=== PATIENT | female | born 1960 | race Caucasian/White ===

== ENCOUNTER 2018-10-16 15:01 | Inpatient (IN) | payer MEDICARE ==
[~2018-10-16] VITALS: Ht 160 cm; Wt 64.4 kg
[~2018-10-16 15:01] MED LIST: BACTRIM DS TAB1 EACH PO; BENADRYL25 MG; BENADRYL25 MG PO; CARAFATE 1 GM TA1 G1 PO; CONSTULOSE10 GM/15 M PO; CORGARD40 M1 PO; CYCLOBENZAPRINE5 MG PO; DIPHENHYDRAMINE25 M3 PO; DOXYCYCLINE 10100 MG PO; FLEXERIL PO; FOLIC ACID1 MG PO; GOLYTELY4000 M1 PO; GUAIATUSSIN AC118 ML PO; IRON325 PO; LASIX 40 MG TAB40 M1 PO; LEVAQUIN 500 M500 M1 PO; MIRALAX255 GM PO; NADOLOL 20 MG T20 M1 PO; NORCO 5-325 TA1 EACH PO; OMEPRAZOLE40 MG PO; OXYCODONE HCL 55 MG PO; OXYCONTIN10 M1 PO; PEPCID40 MG PO; PERCOCET 5-3251 EACH PO; PHENERGAN 25 MG25 M1 PO; PREDNISONE 20 M20 MG PO; PREPARATION H O28 GM; PREPARATION H1 EAC5 RC; PROTONIX40 M2 PO; PROZAC20 MG PO; PYRIDIUM100 M1 PO; SPIRONOLACTONE100 M1; TRAZODONE 150150 M1 PO; TRAZODONE HCL100 MG PO; VEETIDS 250MG250 M1 PO; VENTOLIN HFA 1818 GM INH; ZANAFLEX4 MG PO; ZANTAC 150MG T150 M1 PO; ZPAK PO; [UNRECOGNIZED DRUG - REMARK]
[2018-10-16 15:11] VITALS: BP 107/61
[2018-10-16] MEDS ORDERED: SPIRONOLACTONE25 M1 PO (15:22)
[2018-10-16] MEDS ORDERED: CARVEDILOL3.125 MG PO (15:23)
[2018-10-16 15:52] LABS: HEMOGLOBIN 11.5 gm/dL (12.0-15.0); MCH 32.3 pg (26.0-34.0)
[2018-10-16 15:56] LABS: HEMATOCRIT 33.8 % (37.0-47.0); MCV 95.2 fL (80.0-100.0); MPV 9.7 fl. (7.2-11.1); NUCLEATED RBCS 0 /100WBC; RBC 3.55 mil/uL (4.20-5.00); RDW-CV 15.1 % (10.5-14.5)
[2018-10-16 15:57] LABS: URINE BLOOD TRACE (Negative); URINE CLARITY CLEAR; URINE COLOR YELLOW; URINE GLUCOSE-RANDOM NEGATIVE (Negative); URINE KETONES TRACE (Negative); URINE LEUKOCYTES-REFLEX NEGATIVE (Negative); URINE PROTEIN NEGATIVE (Negative); URINE SPECIFIC GRAVITY 1.025 (1.005-1.030)
[2018-10-16 15:58] LABS: WBC 1.2 thou/uL (4.0-11.0)
[2018-10-16 15:59] LABS: PLATELET COUNT* 29 thou/uL (150-400)
[2018-10-16 16:02] LABS: URINE BILIRUBIN 2+ (Negative); URINE NITRITE-REFLEX POSITIVE (Negative)
[2018-10-16 16:03] LABS: APTT 31.4 Seconds (25.0-31.3); INR 1.4; PROTIME 14.5 Seconds (9.20-11.50)
[2018-10-16 16:03] LABS: ICTOTEST (BILI CONFIRMATORY) Negative (Negative); SQUAMOUS 0-3 Few /LPF (0-3)
[2018-10-16 16:04] LABS: BACTERIA-REFLEX 1-9 Few /HPF (None Seen); CASTS None Seen /LPF (None Seen); CRYSTALS None Seen /LPF (None Seen); URINE RBC 0-2 Rare /HPF (0-2); URINE WBC-REFLEX 6-15 Few /HPF (0-5)
[2018-10-16 16:11] LABS: ALBUMIN 2.7 g/dL (3.4-5.0); ALKALINE PHOSPHATASE 109 U/L (46-116); ANION GAP 7 mmol/L (7-16); BUN 9 mg/dL (7-18); CALCIUM 8.1 mg/dL (8.5-10.1); CHLORIDE 104 mmol/L (98-107); CO2 28 mmol/L (21-32); GLUCOSE 100 mg/dL (70-99); LIPASE 227 U/L (73-393); POTASSIUM 3.2 mmol/L (3.5-5.1); SGOT 31 U/L (15-37); SGPT 15 U/L (30-65); SODIUM 139 mmol/L (136-145); TOTAL BILIRUBIN 1.5 mg/dL (<0.1-1.0); TOTAL PROTEIN 6.8 g/dL (6.4-8.2); TROPONIN-I LEVEL <0.06 ng/mL (<0.06)
[2018-10-16 16:17] LABS: ABSOLUTE LYMPHOCYTES 0.3 thou/uL (0.8-5.3); ABSOLUTE NEUTROPHILS 0.8 thou/uL (1.6-8.1)
[2018-10-16 16:18] LABS: MACROCYTES 1+; PLATELET ESTIMATE DECREASED; TEARDROPS 2+
[2018-10-16 16:19] LABS: GIANT PLATELETS OCCASIONAL
--- NOTE | 2018-10-16 18:18 | NUR ---
DINNER TRAY PROVIDED FOR PT
[2018-10-16 21:19] VITALS: BP 104/67
[2018-10-16 22:30] VITALS: BP 100/63
[2018-10-17] VITALS (7 sets, daily range): BP systolic 82–114; BP diastolic 46–68
[2018-10-17 04:36] LABS: HEMATOCRIT 26.7 % (37.0-47.0); MCH 32.9 pg (26.0-34.0); MCHC 34.7 g/dL (28.0-37.0); MCV 94.9 fL (80.0-100.0); MPV 9.1 fl. (7.2-11.1); RBC 2.81 mil/uL (4.20-5.00); RDW-CV 14.8 % (10.5-14.5)
[2018-10-17 04:50] LABS: ALBUMIN 2.3 g/dL (3.4-5.0); CALCIUM 8.1 mg/dL (8.5-10.1); MAGNESIUM 1.5 mg/dL (1.8-2.4); POTASSIUM 3.6 mmol/L (3.5-5.1); TOTAL BILIRUBIN 1.3 mg/dL (<0.1-1.0); TOTAL PROTEIN 5.9 g/dL (6.4-8.2)
[2018-10-17 04:52] LABS: HEMOGLOBIN 9.3 gm/dL (12.0-15.0)
--- NOTE | 2018-10-17 08:17 | NUR ---
REPORT RECEIVED FROM TAMMI IN ER @ 2033. PT ARRIVED TO ROOM PER CART @ 2134. FENTANYL EFFECTIVE FOR PAIN CONTROL. PT'S BP DECREASED TO 82/46. NOTIFIED DR COELHO AND ALSO REPORTED PT DRANK 2 LITERS OF WATER ALSO PRIOR TO THIS READING. NO EDEMA OR CHF SYMPTOMS NOTED OR REPRTED. NOTIFIED DR COELHO. NS 500 BOLUS ORDERED AND INFUSED THEN STATED IVF @ 75CC HR. RECHECK VITALSRIGHT BEFORE SHIFT CHANGE. BP STILL 88/56. O2 SAT 90% ON ROOM AIR. PUT PT ON 2L 02. NOTIFIED DAY RN.
--- NOTE | 2018-10-17 18:06 | NUR ---
AFEBRILE. LABILE BLOOD PRESSURES ALL SHIFT. SBP RUNNING FROM 82-99. MEDICATED FOR PAIN ONLY WHEN SBP >95, RELIEF NOTED WITH PRESRIBED PAIN MEDICATION. MULTIPLE EPISODES OF DIARRHEA AFTER LACTULOSE ADMINISTRATION. ASSISTED TO CLEAN UP AND CHANGE BRIEFS. NO DIFFICULTY VOIDING. CALLS APPROPRIATELY FOR ANY NEEDED ASSISTANCE. PARACENTESIS ORDERED PER DR COELHO, PLATELETS LOW, NEED TO BE HIGHER BEFORE PROCEDURE CAN BE DONE.
[2018-10-18] VITALS: BP 96/59
[2018-10-18 04:00] VITALS: BP 94/60
[2018-10-18 04:29] LABS: HEMATOCRIT 28.6 % (37.0-47.0); HEMOGLOBIN 9.7 gm/dL (12.0-15.0); MCH 32.7 pg (26.0-34.0); MCV 96.3 fL (80.0-100.0); RBC 2.97 mil/uL (4.20-5.00); RDW-CV 14.7 % (10.5-14.5)
[2018-10-18 04:38] LABS: ALBUMIN 2.2 g/dL (3.4-5.0); MAGNESIUM 1.9 mg/dL (1.8-2.4)
[2018-10-18 04:55] LABS: CALCIUM 7.8 mg/dL (8.5-10.1); CREATININE 0.9 mg/dL (0.6-1.3); POTASSIUM 4.1 mmol/L (3.5-5.1); TOTAL BILIRUBIN 1.1 mg/dL (<0.1-1.0); TOTAL PROTEIN 6.1 g/dL (6.4-8.2)
[2018-10-18 06:16] LABS: MPV 9.2 fl. (7.2-11.1); WBC 0.9 thou/uL (4.0-11.0)
--- NOTE | 2018-10-18 07:49 | NUR ---
ASSUMED PT CARE @ 1930. PT'S BP STABLE THIS SHIFT. PAIN MEDS EFFECTIVE. CALL LIGHT IN REACH. HOURLY ROUNDING FOR SAFETY.
[2018-10-18 15:00] VITALS: BP 95/54
--- NOTE | 2018-10-18 16:29 | EKG ---
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 : 1960 Requested By: Kwesi Gong Order Number: [id number] MD: Elliot Phillips Measurements Intervals [place] Rate: 71 P: 58 RI: 140 QRS: 35 QRSD: 79 T: 22 QT: 437 QTc: 475 Interpretive Statements Sinus rhythm Low voltage, precordial leads Compared to ECG 09/24/2016 01:49:24 Low QRS voltage now present T-wave abnormality no longer present Prolonged QT interval no longer present Electronically Signed On 10-18-2018 16:29:11 RATE REVIEWER by Elliot Phillips [email or web address] <ELECTRONICALLY SIGNED> By: Elliot Phillips MD, FACC 10/18/18 1629 1526 1526 Elliot Phillips MD, [facility] /EPI
[2018-10-18 20:30] VITALS: BP 115/64
[2018-10-18 23:16] LABS: URINE BILIRUBIN NEGATIVE (Negative); URINE BLOOD NEGATIVE (Negative); URINE CLARITY CLEAR; URINE COLOR DARK YELLOW; URINE GLUCOSE-RANDOM NEGATIVE (Negative); URINE KETONES NEGATIVE (Negative); URINE LEUKOCYTES-REFLEX NEGATIVE (Negative); URINE NITRITE-REFLEX NEGATIVE (Negative); URINE PROTEIN NEGATIVE (Negative); URINE SPECIFIC GRAVITY 1.025 (1.005-1.030); URINE UROBILINOGEN 0.2 E.U./dl (0.2-1.0)
[2018-10-19 04:17] LABS: HEMATOCRIT 26.6 % (37.0-47.0); MCH 32.6 pg (26.0-34.0); MCHC 33.8 g/dL (28.0-37.0); MCV 96.3 fL (80.0-100.0); MPV 9.3 fl. (7.2-11.1); RBC 2.76 mil/uL (4.20-5.00); RDW-CV 14.8 % (10.5-14.5)
[2018-10-19 04:26] LABS: CREATININE 0.9 mg/dL (0.6-1.3); MAGNESIUM 1.7 mg/dL (1.8-2.4); POTASSIUM 4.2 mmol/L (3.5-5.1)
--- NOTE | 2018-10-19 05:48 | NUR ---
PT SLEPT ON AND OFF THIS SHIFT. ASSESSMENT DOCUMENTED. MEDS GIVEN PER E-OCT. IV PATENT. PAIN MEDS GIVEN PER E-OCT. PT HAS BRUSING ON HER ABDOMEN WHERE SHE HAS BEEN SCRATCHING. PT REMAINED NPO AFTER 0000, AM MEDS GIVEN WITH SIP OF WATER. WILL CONTINUE WITH PLAN OF CARE.
[2018-10-19 07:49] VITALS: BP 90/55
--- NOTE | 2018-10-19 11:27 | NUR ---
CALLED LAB PER 'S REQUEST TO CHECK ON UA/CULTURE. SPOKE WITH [facility]. IT WAS SENT ON 10/16/18 AND SENT TO [facility]. SHOULD HERE SOMETHING BACK BY TOMORROW 10/20 AFTERNOON.
--- NOTE | 2018-10-19 12:43 | NUR ---
SW met with pt to complete initial assessment, introduce self, and SW role. Pt alert, oriented, pleasant. Pt continues to live at home with family. Pt says her dtr is suportive but her and son who live in the home are not as helpful. Pt explained that she and her have pretty much been since 2005 and live on different floors of the home. Pt unsure of what her needs will be at dc at this time. SW to continue to follow to assist with safe dc planning.
--- NOTE | 2018-10-19 16:13 | NUR ---
SHIFT NOTE - PT WAS SUPPOSED TO HAVE US PARACENTESIS BUT PLT LEVEL TOO LOW (NEEDS ABOVE 50 PER IR). PT UP TO BSC WITH MINIMAL ASSIST. PT REQUEST PAIN MEDS DURING THIS SHIFT. WILL CONTINUE TO MONITOR.
[2018-10-19 16:53] VITALS: BP 106/58
[2018-10-19 20:00] VITALS: BP 129/69
[2018-10-20 05:01] LABS: ALBUMIN 2.1 g/dL (3.4-5.0); CALCIUM 8.2 mg/dL (8.5-10.1); CREATININE 0.9 mg/dL (0.6-1.3); MAGNESIUM 1.7 mg/dL (1.8-2.4); POTASSIUM 4.2 mmol/L (3.5-5.1); TOTAL BILIRUBIN 1.1 mg/dL (<0.1-1.0); TOTAL PROTEIN 5.8 g/dL (6.4-8.2)
[2018-10-20 05:02] LABS: HEMATOCRIT 26.6 % (37.0-47.0); HEMOGLOBIN 9.1 gm/dL (12.0-15.0); MCH 32.7 pg (26.0-34.0); MCHC 34.2 g/dL (28.0-37.0); MCV 95.6 fL (80.0-100.0); MPV 9.4 fl. (7.2-11.1); RBC 2.79 mil/uL (4.20-5.00); RDW-CV 14.5 % (10.5-14.5)
--- NOTE | 2018-10-20 08:27 | NUR ---
PATIENT RESTING IN BED. UP SELF TO BSC. COMPLAINTS OF PAIN TO ABDOMEN, PAIN MEDS PER MAR. DENIES NEEDS. REPORT GIVEN TO ONCOMING NURSE.
[2018-10-20 08:30] VITALS: BP 81/50
[2018-10-20 10:31] LABS: INR 1.4; PROTIME 14.4 Seconds (9.20-11.50)
--- NOTE | 2018-10-20 19:27 | NUR ---
I ASSUMED CARE OF THE PATIENT AT 0700. SHE IS ALERT AND ORIENTED X4 AND IS UP WITH SBA TO THE BSC. SHE IS UP OFTEN WITH LOOSE STOOL D/T LACTULOSE. BED IS IN THE LOW LOCKED POSITION AND CALL LIGHT IS IN REACH. SHE RECEIVED 1 UNIT OF PLATELETS AND WAS THEN TAKEN FOR A PARACENTESIS AND HAD 4800 CC OFF. HOURLY ROUNDING WAS COMPLETED AND PATIENT NEEDS ARE MET. PAIN IS MANAGED WITH PRN MEDS. WILL CONTINUE TO MONITOR.
[2018-10-20 20:45] VITALS: BP 94/60
[2018-10-21 03:55] LABS: HEMATOCRIT 27.5 % (37.0-47.0); HEMOGLOBIN 9.4 gm/dL (12.0-15.0); MCH 32.5 pg (26.0-34.0); MCV 95.5 fL (80.0-100.0); MPV 8.4 fl. (7.2-11.1); RBC 2.88 mil/uL (4.20-5.00); RDW-CV 14.5 % (10.5-14.5)
[2018-10-21 04:02] LABS: ALBUMIN 2.3 g/dL (3.4-5.0); CALCIUM 8.4 mg/dL (8.5-10.1); CREATININE 0.9 mg/dL (0.6-1.3); MAGNESIUM 1.5 mg/dL (1.8-2.4); TOTAL BILIRUBIN 1.4 mg/dL (<0.1-1.0)
[2018-10-21 04:03] LABS: INR 1.4; PROTIME 14.3 Seconds (9.20-11.50)
--- NOTE | 2018-10-21 05:39 | NUR ---
PT SLEPT MOST OF SHIFT. ASSESSMENT DOCUMENTED. MEDS GIVEN PER E-MAR. IV PATENT. PAIN MEDS GIVEN PER E-MAR WITH RELIEF. PT EXRESSED CONCERNS ABX ABX BEING DC'D. PT FEELS LIKE SHE IS GETTING A FEVER, TEMP UP TO 99.5F THORUGH NIGHT. PARACENTISIS SITE C/D/I, BANDAID IN PLACE. WILL CONTINUE WITH PLAN OF CARE.
[2018-10-21 07:46] VITALS: BP 96/47
[2018-10-21] MEDS ORDERED: LASIX 40 MG TAB40 M1 PO (10:46)
[2018-10-21] MEDS ORDERED: CIPRO500 MG PO (10:46)
[2018-10-21] MEDS ORDERED: SPIRONOLACTONE25 MG PO (10:46)
[2018-10-21] MEDS ORDERED: LACTULOSE20 GM/30 M PO (10:46)
[2018-10-21 11:33] VITALS: BP 96/47
[2018-10-21 11:46] LABS: BF RBC 1864 /mm3; TOTAL CELL COUNT 92 /mm3
[2018-10-21 12:13] LABS: INFLUENZA A ANTIGEN None Detected (None Detect); INFLUENZA B ANTIGEN None Detected (None Detect)
[2018-10-21 12:54] LABS: BF EOSINOPHILS 2 %; BF LYMPHOCYTES 66 %; BF MONOCYTES 6 %; BF POLYS 26 %; BF TISSUE 141 /100 WBC
[2018-10-21 12:57] LABS: TOTAL VOLUME 4800 ml
[2018-10-21 12:58] LABS: CLARITY CLEAR
[2018-10-21 13:16] LABS: SOURCE ASCITES
--- NOTE | 2018-10-21 14:32 | NUR ---
ASSESSMENT COMPLETE. PT ALERT AND ORIENTED X4. PT WILL DC HOME AND FOLLOW UP WITH HER OWN GI AND ONCOLOGY DOCTORS. PT LIVES AT HOME WITH DAUGHTER. PT HAS PHYSICAL THERAPY AND OCCUPATIONAL THERAPY TODAY AND THEY BOTH SIGNED OFF PT IS INDEPENDENT. PT STARTED ON CIPRO. DENIES PAIN AND N/V. PT IS UP AD JESIKA. SEE ASSESSMENT AND VITALS FOR OTHER DETAILS. CALL LIGHT WITHIN REACH, WILL CONTINUE PLAN OF CARE
--- NOTE | 2018-10-21 15:16 | NUR ---
PT DC HOME WITH FAMILY. TRANSPORTED VIA WHEELCHAIR TO PERSONAL VEHICLE. IV TAKEN OUT WITHOUT COMPLICATIONS. PT GIVEN DC INSTRUCTIONS AND VERBALIZES UNDERSTANDING. PRESCRIPTIONS CALLED IN [facility].
[2018-10-21 15:17] VITALS: BP 96/47
[2018-10-22 09:47] LABS: SOURCE ASCITES
[2018-10-22 12:05] LABS: BODY FLUID LDH 32 IU/L (()); BODY FLUID PROTEIN 1.3 g/dL (())
--- NOTE | 2018-10-26 13:07 | PATH ---
[address] [address] PATHOLOGY RPT PROCEDURE Name: LISSETTE SALAMANCA Room: [address] IN [facility]#: [id number] Admission: 10/16/18 Date of : 64 Discharge: 10/21/18 Report #: [id number] Path Case #: [id number] Note [facility] Accession Number: [id number] TESTS RESULT FLAG UNITS REF RANGE LAB Clinician Provided Cytology Information No. of containers..01 Other (Miscellaneous) Source: ASCITES DIAGNOSIS: 02 ASCITES NEGATIVE FOR MALIGNANT CELLS. MESOTHELIAL CELLS AND FEW RBCs AND INFLAMMATORY CELLS, PREDOMINANTLY CHRONIC. THIS INCLUDES EVALUATION OF A CELL BLOCK. Signed out by: 02 Kaushik Cummings MD, Pathologist NPI- [id number] Performed by: 01 Shawn Kirk, Car Park Attendant ([facility]) Gross description: 01 70ML, YELLOW, CLOUDY /LCS FLAG LEGEND: L-Low Normal,H-High Normal,LL-Alert Low,HH-Alert High <-Panic Low,>-Panic High,A-Abnormal,AA-Critical Abnormal Performed at: [address] [place] [address] Johann Lawrence MD, [address] [place] [id number] Kaushik Cummings MD, Specimen Comment: A courtesy copy of this report has been sent to Specimen Comment: [phone]. Specimen Comment: Report sent to Specimen Comment: A duplicate report has been generated due to demographic updates. Performed at: [address], [place], [place] [id number] MD Johann Lawrence MD Phone: [phone]
== END 2018-10-21 15:15 | disposition home or self-care (01) | DRG 442 ==
LOC: M.ERS 15:01 → M.3W 17:06 → M.TBA-ER 17:06 → M.3W 21:49
PROVIDERS: Family Medicine; Internal Medicine; ADMIT Internal Medicine
PROC: 0W9G3ZZ Drainage of Peritoneal Cavity, Percutaneous Approach (ICD-10-PCS; principal; 2018-10-19)
PROC: 30233R1 Transfusion of Nonautologous Platelets into Peripheral Vein, Percutaneous Approach (ICD-10-PCS; 2018-10-20)
DX: K72.90 Hepatic failure, unspecified without coma (principal); K76.6 Portal hypertension; R18.8 Other ascites; D61.818 Other pancytopenia; E44.1 Mild protein-calorie malnutrition; K21.9 Gastro-esophageal reflux disease without esophagitis; J44.9 Chronic obstructive pulmonary disease, unspecified; F17.210 Nicotine dependence, cigarettes, uncomplicated; K57.90 Diverticulosis of intestine, part unspecified, without perforation or abscess without bleeding; F10.20 Alcohol dependence, uncomplicated; K74.60 Unspecified cirrhosis of liver; K42.9 Umbilical hernia without obstruction or gangrene; Z91.14 Patient's other noncompliance with medication regimen; Z91.013 Allergy to seafood; Z91.040 Latex allergy status

== ENCOUNTER 2019-02-04 16:54 | Inpatient (IN) | payer MEDICARE ==
[~2019-02-04] VITALS: Ht 160 cm; Wt 65.3 kg
[~2019-02-04 16:54] MED LIST changes: +CARVEDILOL3.125 MG PO; +CIPRO500 MG PO; +LACTULOSE20 GM/30 M PO; +SPIRONOLACTONE25 M1 PO; +SPIRONOLACTONE25 MG PO
[2019-02-04 17:05] VITALS: BP 118/58
[2019-02-04] MEDS ORDERED: CELEXA10 MG PO (17:11)
[2019-02-04] MEDS ORDERED: BENADRYL25 MG PO (17:11)
[2019-02-04] MEDS ORDERED: FLEXERIL PO (17:11)
[2019-02-04 17:34] LABS: ABSOLUTE LYMPHOCYTES 0.4 thou/uL (0.8-5.3); ABSOLUTE MONOCYTES 0.2 thou/uL (0.0-1.2); ABSOLUTE NEUTROPHILS 1.6 thou/uL (1.6-8.1); BASOPHILS 0.3 %; HEMATOCRIT 31.4 % (37.0-47.0); HEMOGLOBIN 10.6 gm/dL (12.0-15.0); LYMPHOCYTES 16.5 %; MCH 31.3 pg (26.0-34.0); MCHC 33.9 g/dL (28.0-37.0); MCV 92.5 fL (80.0-100.0); MPV 10.2 fl. (7.2-11.1); NUCLEATED RBCS 0 /100WBC; POLYS 73.2 %; RDW-CV 17.3 % (10.5-14.5); WBC 2.2 thou/uL (4.0-11.0)
[2019-02-04 17:39] LABS: PLATELET COUNT* 39 thou/uL (150-400)
[2019-02-04 17:42] LABS: ANION GAP 9 mmol/L (7-16); BUN 12 mg/dL (7-18); CALCIUM 8.3 mg/dL (8.5-10.1); CHLORIDE 103 mmol/L (98-107); CO2 26 mmol/L (21-32); CREATININE 0.9 mg/dL (0.6-1.3); GLUCOSE 96 mg/dL (70-99); POTASSIUM 3.8 mmol/L (3.5-5.1); SODIUM 138 mmol/L (136-145)
[2019-02-04 17:51] LABS: ALBUMIN 2.9 g/dL (3.4-5.0); ALKALINE PHOSPHATASE 155 U/L (46-116); LIPASE 198 U/L (73-393); SGOT 25 U/L (15-37); SGPT 19 U/L (30-65); TOTAL BILIRUBIN 1.3 mg/dL (<0.1-1.0); TOTAL PROTEIN 7.1 g/dL (6.4-8.2); TROPONIN-I LEVEL <0.06 ng/mL (<0.06)
[2019-02-04 18:33] LABS: URINE BILIRUBIN NEGATIVE (Negative); URINE BLOOD TRACE (Negative); URINE CLARITY CLEAR; URINE COLOR YELLOW; URINE GLUCOSE-RANDOM NEGATIVE (Negative); URINE KETONES NEGATIVE (Negative); URINE LEUKOCYTES-REFLEX NEGATIVE (Negative); URINE NITRITE-REFLEX NEGATIVE (Negative); URINE PROTEIN NEGATIVE (Negative); URINE SPECIFIC GRAVITY <= 1.005 (1.005-1.030); URINE UROBILINOGEN 0.2 E.U./dl (0.2-1.0)
[2019-02-04 23:30] VITALS: BP 119/73
[2019-02-05] VITALS (14 sets, daily range): BP systolic 70–112; BP diastolic 43–74
--- NOTE | 2019-02-05 08:25 | NUR ---
PAGED SHIP ERECTOR PHYSICIAN TO UPDATE ON BLOOD PRESSURES
--- NOTE | 2019-02-05 08:37 | NUR ---
SPOKE WITH DR MONTOYA ON THE PHONE AND NOTIFIED OF BLOOD PRESSURES AND PT REQUESTING PAIN MEDICATIONS. DR MONTOYA STATES HE WILL BE HERE SHORTLY TO SEE PATIENT.
--- NOTE | 2019-02-05 09:09 | NUR ---
DR MONTOYA AT BEDSIDE
--- NOTE | 2019-02-05 10:06 | EKG ---
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 : 1960 Requested By: Mallory Mccall Order Number: [id number] MD: Mike Pruett Measurements Intervals [place] Rate: 71 P: 54 ND: 139 QRS: 38 QRSD: 95 T: 23 QT: 439 QTc: 478 Interpretive Statements Sinus rhythm Low voltage, precordial leads Borderline prolonged QT interval Baseline wander in lead(s) I,II,aVR Compared to ECG 10/16/2018 15:26:46 No significant changes Electronically Signed On 02-05-2019 10:06:35 CDT by Mike Pruett [email or web address] <ELECTRONICALLY SIGNED> By: Mike Pruett MD, [facility] 02/05/19 1006 1717 1717 Mike Pruett MD, [facility] /EPI
--- NOTE | 2019-02-05 10:52 | NUR ---
PAGING DR MONTOYA FOR NOTIFICATION OF BLOOD PRESSURE
--- NOTE | 2019-02-05 10:55 | NUR ---
DR MONTOYA CALLED BACK AND WAS NOTIFIED OF BLOOD PRESSURE AND STATES HE WILL PLACE ORDERS
[2019-02-05 12:21] LABS: APTT 33.6 Seconds (25.0-31.3); INR 1.4; PROTIME 14.2 Seconds (9.20-11.50)
[2019-02-05 15:59] LABS: SOURCE ASCITES
[2019-02-05 16:04] LABS: BF RBC 3552 /mm3; CLARITY CLOUDY; TOTAL CELL COUNT 337 /mm3; TOTAL VOLUME 2300 ml
[2019-02-05 16:30] LABS: BF LYMPHOCYTES 24 %; BF MONOCYTES 3 %; BF POLYS 73 %; BF TISSUE 11 /100 WBC
--- NOTE | 2019-02-05 17:00 | NUR ---
RIGHT BASILIC VESSEL ACCESSED FOR DUAL LUMEN 5 MONGOLIAN PICC. LINE PRE-TRIMMED TO 41CM AND ADVANCED TO THE [place] WITH NO RESISTANCE MET. UPPER ARM CIRCUMFERENCE ABOVE INERTION SITE = 12 1/2". SHERLOCK MAGNET AND 3CG CONFIRMATION OF TIP TERMINATING AT THE CAVOATRIAL JUNCTION APPRECIATED. GUIDEWIRE REMOVED LINE FLUSHED AND REPORT GIVEN TO NAOMIE GREENBERG.
[2019-02-06] VITALS (33 sets, daily range): BP systolic 68–146; BP diastolic 37–96
--- NOTE | 2019-02-06 07:34 | NUR ---
ASSESSMENT CHARTED. PATIENT BP WAS SOFT/HYPOTENSIVE AT START OF SHIFT. WITH CONSISTENT TREND, LEVOPHED WAS STARTED. CURRENTLY TITRATED TO 3. VSS DURING SHIFT OTHERWISE. PATIENT SLEPT FOR MOST OF SHIFT, NO COMPLAINTS OF PAIN. SPOKE WITH PATIENT'S DAUGHTER AND GAVE STATUS UPDATE. ATTEMPTED TO GIVE LACTULOSE DOSE DURING SHIFT THAT WAS REFUSED ON DAY SHIFT, PATIENT REFUSED AGAIN.
[2019-02-06 11:37] LABS: BE -0.9 mmol/L (-2 to +3); HEMATOCRIT 27.8 % (37.0-47.0); HEMOGLOBIN 9.3 gm/dL (12.0-15.0); MCH 30.9 pg (26.0-34.0); MCHC 33.5 g/dL (28.0-37.0); MCV 92.1 fL (80.0-100.0); MPV 8.5 fl. (7.2-11.1); NUCLEATED RBCS 0 /100WBC; PCO2 VENOUS 37.5 mmHg (41.0-51.0); PO2 VENOUS 54.1 mmHg (35.0-45.0); RBC 3.02 mil/uL (4.20-5.00); RDW-CV 16.7 % (10.5-14.5)
[2019-02-06 11:43] LABS: WBC 1.1 thou/uL (4.0-11.0)
[2019-02-06 11:44] LABS: PLATELET COUNT* 23 thou/uL (150-400)
[2019-02-06 11:45] LABS: INR 1.4; PROTIME 14.4 Seconds (9.20-11.50)
[2019-02-06 11:50] LABS: ALBUMIN 3.4 g/dL (3.4-5.0); CREATININE 1.1 mg/dL (0.6-1.3); POTASSIUM 3.9 mmol/L (3.5-5.1); TOTAL BILIRUBIN 2.3 mg/dL (<0.1-1.0); TOTAL PROTEIN 6.7 g/dL (6.4-8.2)
[2019-02-06 11:59] LABS: ABSOLUTE LYMPHOCYTES 0.2 thou/uL (0.8-5.3); ABSOLUTE NEUTROPHILS 0.9 thou/uL (1.6-8.1); PLATELET ESTIMATE DECREASED
[2019-02-06 12:00] LABS: ANISOCYTOSIS 1+; POIKILOCYTOSIS 1+
--- NOTE | 2019-02-06 12:00 | NUR ---
LEVOPHED TITRATED OFF. PT UP TO BSC INDEPENDENTLY. PT C/O OF LOWER ABDOMINAL PAIN AND BACK PAIN. PRN FENTANLY ADMININSTERED PER EMAR.
--- NOTE | 2019-02-06 15:34 | NUR ---
UPDATE GIVEN TO SUZANNE BALLARD. PT TOLERATING DIET. PT TO BE NPO AFTER MIDNIGHT FOR ABDOMINAL ULTRA SOUND TOMORROW.
[2019-02-06 16:03] LABS: URINE BILIRUBIN NEGATIVE (Negative); URINE BLOOD TRACE (Negative); URINE CLARITY CLEAR; URINE COLOR YELLOW; URINE GLUCOSE-RANDOM NEGATIVE (Negative); URINE KETONES NEGATIVE (Negative); URINE LEUKOCYTES NEGATIVE (Negative); URINE NITRITE NEGATIVE (Negative); URINE PROTEIN NEGATIVE (Negative)
[2019-02-06 16:05] LABS: BACTERIA 1-9 Few /HPF (None Seen); CASTS None Seen /LPF (None Seen); CRYSTALS None Seen /LPF (None Seen); SQUAMOUS NONE SEEN /LPF (0-3); URINE RBC 0-2 Rare /HPF (0-2); URINE WBC 0-5 Rare /HPF (0-5)
[2019-02-07] VITALS (15 sets, daily range): BP systolic 100–131; BP diastolic 62–91
[2019-02-07 03:49] LABS: HEMATOCRIT 23.7 % (37.0-47.0); HEMOGLOBIN 7.9 gm/dL (12.0-15.0); MCH 30.8 pg (26.0-34.0); MCHC 33.6 g/dL (28.0-37.0); MCV 91.8 fL (80.0-100.0); MPV 8.4 fl. (7.2-11.1); RBC 2.58 mil/uL (4.20-5.00); RDW-CV 16.3 % (10.5-14.5)
[2019-02-07 04:02] LABS: INR 1.5; PROTIME 15.6 Seconds (9.20-11.50)
[2019-02-07 04:06] LABS: WBC 1.1 thou/uL (4.0-11.0)
[2019-02-07 04:09] LABS: ALBUMIN 3.6 g/dL (3.4-5.0); CALCIUM 9.1 mg/dL (8.5-10.1); CREATININE 0.9 mg/dL (0.6-1.3); POTASSIUM 3.7 mmol/L (3.5-5.1); TOTAL BILIRUBIN 1.8 mg/dL (<0.1-1.0); TOTAL PROTEIN 6.8 g/dL (6.4-8.2)
--- NOTE | 2019-02-07 06:53 | NUR ---
ASSESSMENT CHARTED. VSS. PATIENT C/O ABD PAIN DURING SHIFT, GAVE 3 DOSES FENTANYL, PAIN RESOLVED. DR. MONTOYA CALLED FOR LACTIC ACID RESULTS, ORDERS RECEIVED. BOLUSED PATIENT 250 ML NS. PATIENT WENT NPO AT MIDNIGHT. WILL HAVE ABDOMINAL US IN AM.
[2019-02-07 15:58] LABS: SOURCE ABDOMINAL
--- NOTE | 2019-02-07 18:48 | NUR ---
PATIENT SOMEWHAT PROGRESSED WELL TOWARDS GOALS. PATIENT HAS PAIN THROUGOUT ENTIRE SHIFT, PRN FENTANYL GIVEN THROUGHOUT SHIFT, SEE EMAR. DAUGHTER WOULD LIKE DR MONTOYA OR ROUNDOSMAR PHSYCIAN TO CALL HER IN THE AM AFTER HE SEES THE PATIENT TO UPDATE HER. ASCITES PERSISTS, PHYSICAN AWARE. ULTRASOUND RESULTS CALLED TO DR MONTOYA. NO OTHER CONCERNS AT THIS TIME, FAMILY PRESENT TO VISIT AT THIS TIME. BED IN LOWEST POSITON, CALL LIGHT IN REACH.
[2019-02-08] VITALS (11 sets, daily range): BP systolic 92–143; BP diastolic 53–85
[2019-02-08 04:54] LABS: MCH 30.8 pg (26.0-34.0); MCHC 33.3 g/dL (28.0-37.0); MCV 92.3 fL (80.0-100.0); MPV 8.3 fl. (7.2-11.1); RBC 2.6 mil/uL (4.20-5.00); RDW-CV 16.9 % (10.5-14.5)
[2019-02-08 05:03] LABS: INR 1.6
[2019-02-08 05:08] LABS: ALBUMIN 3.4 g/dL (3.4-5.0); CALCIUM 8.9 mg/dL (8.5-10.1); CREATININE 0.8 mg/dL (0.6-1.3); MAGNESIUM 1.7 mg/dL (1.8-2.4); POTASSIUM 3.8 mmol/L (3.5-5.1); TOTAL BILIRUBIN 1.4 mg/dL (<0.1-1.0); TOTAL PROTEIN 6.7 g/dL (6.4-8.2)
[2019-02-08 05:09] LABS: WBC 1.3 thou/uL (4.0-11.0)
--- NOTE | 2019-02-08 07:32 | NUR ---
ASSESSMENT CHARTED. VSS. PATIENT C/O PAIN IN ABDOMEN. GAVE PRN FENTANYL DOSES. PATIENT SLEPT MOST OF THE NIGHT. GAVE PATEINT BREIFS TO HELP WITH LACTULOSE BOWEL MOVEMENTS. 3 LARGE BM'S OVER NIGHT. PLAN TO TRANSFER TO TELE UNIT IN AM.
--- NOTE | 2019-02-08 11:12 | NUR ---
Pt is A&O. Resides at home with her (they are ) and kids. Independent with ADLs. 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 Pt can drive but states that she does not currently have a car. Dtr arranges transportation with friends when needed. Pt has a walker at home, but states that she does not need to use it at this time. Pt has home o2 through [employer], but states that she can't afford it and hasn't been using it, so plans to call and have it picked up. No hx of HH or SNF. Goal is home at in, Pt wants HH at in, wants a nurse and SW for community resources. CM will discuss HH options with Pt. Following.
--- NOTE | 2019-02-08 11:19 | NUR ---
REPORT GIVEN TO PATRICIA GREENBERG. ALL QUESTIONS ANSWERED. PATIENT TRANSFERED BY [facility] TO ROOM 200 WITH ALL BELONGINGS AND CHART. MARY STATED SHE WOULD CALL HER DAUGHTER.
--- NOTE | 2019-02-08 15:27 | NUR ---
ASSESSMENT COMPLETED CHARTED. VSS. TRACING SR ON MONITOR. PT C/O CONSTANT ABDOMINAL PAIN. MEDS GIVEN PER EMAR. HOURLY ROUNDING IN [place]. CLWR.
[2019-02-09 04:00] VITALS: BP 100/58
[2019-02-09 07:00] VITALS: BP 109/62
--- NOTE | 2019-02-09 08:32 | NUR ---
INITAL ASSESSMENT COMPLETED CHARTED. VSS. TRACING SR-ST ON MONITOR. PT SOMPLAINS OF 5/10 PAIN IN ABDOMEN. PT DENIES N/V/D. PT DENIES ANY FURTHER NEEDS AT THIS TIME. HOURLY ROUNDING IN PLACE FOR PT SAFETY. CLWR.
--- NOTE | 2019-02-09 08:36 | NUR ---
INITAL ASSESSMENT COMPLETED CHARTED. VSS. TRACING SR-ST ON MONITOR. C/O 8/10 ABDOMINAL PAIN. ALERT & OREINTED AND ABLE TO VOICE ALL NEEDS. PT DENIES ANY FURTHER NEEDS AT THIS TIME. HOURLY ROUNDING IN PLACE FOR PT SAFETY. CLWR.
[2019-02-09 11:03] LABS: HEMATOCRIT 24.2 % (37.0-47.0); HEMOGLOBIN 8.2 gm/dL (12.0-15.0); MCH 31.3 pg (26.0-34.0); MCHC 33.8 g/dL (28.0-37.0); MCV 92.6 fL (80.0-100.0); MPV 8.2 fl. (7.2-11.1); NUCLEATED RBCS 0 /100WBC; RBC 2.62 mil/uL (4.20-5.00); RDW-CV 16.8 % (10.5-14.5)
[2019-02-09 11:12] LABS: INR 1.6; PROTIME 16.6 Seconds (9.20-11.50)
[2019-02-09 11:24] LABS: ALBUMIN 3.2 g/dL (3.4-5.0); CALCIUM 8.7 mg/dL (8.5-10.1); MAGNESIUM 1.7 mg/dL (1.8-2.4); POTASSIUM 3.5 mmol/L (3.5-5.1); TOTAL BILIRUBIN 1.3 mg/dL (<0.1-1.0); TOTAL PROTEIN 6.6 g/dL (6.4-8.2)
[2019-02-09 11:48] LABS: ABSOLUTE LYMPHOCYTES 0.2 thou/uL (0.8-5.3); ABSOLUTE NEUTROPHILS 1.1 thou/uL (1.6-8.1); ATYPICAL LYMPHS 2 %; PLATELET ESTIMATE DECREASED
[2019-02-09 11:52] VITALS: BP 111/63
[2019-02-09 16:03] VITALS: BP 109/62
[2019-02-09 20:00] VITALS: BP 114/71
[2019-02-10] VITALS: BP 132/80
[2019-02-10 04:00] VITALS: BP 94/54
--- NOTE | 2019-02-10 06:30 | NUR ---
ASSUMED PT CARE AT 1930. ASSESSMENT COMPLETED CHARTED. ABLE TO MAKE NEEDS KNOWN. UP AD JESIKA IN ROOM, C/O PAIN IN ABDOMIN AND GAVE PRN PAIN MEDICATION PER OCT. PT RESTING IN BED MOST OF THE NIGHT BUT STATES SHE DIDNT SLEEP MUCH. VSS. WILL CONTINUE TO MONITOR.
[2019-02-10 07:00] VITALS: BP 110/70
[2019-02-10 07:39] LABS: WBC 1.3 thou/uL (4.0-11.0)
[2019-02-10 07:40] LABS: PLATELET COUNT* 19 thou/uL (150-400)
[2019-02-10 09:26] LABS: BASOPHILS 1.3 %; EOSINOPHILS 1.2 %; HEMATOCRIT 25.5 % (37.0-47.0); HEMOGLOBIN 8.6 gm/dL (12.0-15.0); LYMPHOCYTES 16.6 %; MCH 31.2 pg (26.0-34.0); MCHC 33.6 g/dL (28.0-37.0); MCV 92.9 fL (80.0-100.0); MONOCYTES 7.2 %; MPV 8.6 fl. (7.2-11.1); NUCLEATED RBCS 0 /100WBC; POLYS 73.7 %; RBC 2.74 mil/uL (4.20-5.00); RDW-CV 16.8 % (10.5-14.5)
[2019-02-10 09:27] LABS: ABSOLUTE LYMPHOCYTES 0.2 thou/uL (0.8-5.3); ABSOLUTE MONOCYTES 0.1 thou/uL (0.0-1.2); ABSOLUTE NEUTROPHILS 0.9 thou/uL (1.6-8.1)
[2019-02-10 09:29] LABS: WBC 1.2 thou/uL (4.0-11.0)
[2019-02-10 09:44] LABS: ALBUMIN 3.3 g/dL (3.4-5.0); CALCIUM 8.6 mg/dL (8.5-10.1); CREATININE 0.9 mg/dL (0.6-1.3); POTASSIUM 3.5 mmol/L (3.5-5.1); TOTAL BILIRUBIN 1.3 mg/dL (<0.1-1.0); TOTAL PROTEIN 6.7 g/dL (6.4-8.2)
--- NOTE | 2019-02-10 11:00 | NUR ---
INITIAL ASSESSMENT COMPLETED CHARTED. TRACING SR ON MONITOR. VSS. PT DENIES PAIN. NIH=0. PT DENIES ANY FURTHER NEEDS AT THIS TIME. HOURLY ROUNDING IN PLACE FOR PT SAFETY. CLWR
[2019-02-10 11:46] VITALS: BP 96/53
[2019-02-10 15:13] VITALS: BP 134/70
--- NOTE | 2019-02-10 16:30 | CON ---
[address] [address] CONSULTATION Name: LISSETTE SALAMANCA Room: [address] IN .R.#: [id number] Admission: 02/04/19 Attend Phys: Althea Penn MD Discharge: Date of : 64 Report #: [id number] THIS REPORT FOR: //name// CC: Shania Penn DATE OF SERVICE: 02/09/2019 REQUESTING PHYSICIAN: Dr. Mcwilliams. REASON FOR CONSULTATION: Pancytopenia. HISTORY OF PRESENT ILLNESS: The patient is a 58-year-old woman with history of alcoholic versus cirrhosis with portal hypertension, who has been admitted to the hospital due to constipated cirrhosis, pancytopenia on multiple times. She has seen my partner, Dr. Díaz, Dr. Tanner during hospital stay, though she is admitted to the hospital with complaints of abdominal distention. She had large ascites, which was drained. She is felt to have spontaneous bacterial peritonitis. She was noted to have worsening pancytopenia. Hematology consult is requested. She is doing okay. She is alert, oriented. She admits having alcohol months ago. She said she had relapse of her alcohol abuse and binging after her brother committed suicide. She has complaints of abdominal distention. Denies melena, hematochezia. PAST MEDICAL HISTORY: Same as above. PHYSICAL EXAMINATION: GENERAL: Reveals chronically ill-appearing woman, not in acute distress. VITAL SIGNS: Blood pressure 111/63, heart rate is 89, temperature 98.5, respirations 20. HEENT: Does not reveal icterus or jaundice. LYMPH: There is no peripheral lymphadenopathy. HEART: Normal S1, S2. LUNGS: Clear. ABDOMEN: Distended. Ascitic fluid appreciated, nontender. No rebound. LABORATORY DATA: White count 1.3, hemoglobin 8.2, platelets 19. Total bilirubin 1.3, ALT 25, AST 27. Ammonia 165. CT of abdomen and pelvis reviewed. ASSESSMENT AND PLAN: Pancytopenia, chronic, secondary to hypersplenism, liver cirrhosis. The patient has chronic pancytopenia, which occasionally gets worse when she is actually in the hospital. There are no signs of bleeding. No transfusion necessary at this point. She does continue to monitor for a couple of months. If she develops any signs of bleeding or hemoglobin is less than 7, or platelets less than 10,000 consistent with supportive transfusions of packed red blood cells or platelets. Otherwise, I do [place] [address] CONSULTATION Name: LISSETTE SALAMANCA Room: [address] IN [facility]#: [id number] Admission: 02/04/19 Attend Phys: Althea Penn MD Discharge: Date of : 64 Report #: [id number] Thank you very much for allowing me to participate in the care of this patient. <ELECTRONICALLY SIGNED> By: Juan Rey MD 02/10/19 1630 1544 [id number] Rey MD /molly
--- NOTE | 2019-02-10 17:34 | CON ---
[address] [address] CONSULTATION Name: LISSETTE SALAMANCA Room: [address] IN .R.#: [id number] Admission: 02/04/19 Attend Phys: Althea Penn MD Discharge: Date of : 64 Report #: [id number] THIS REPORT FOR: //name// CC: Shania GAVIN- Althea Penn DICTATED BY: Yadira GAVIN DATE OF SERVICE: 02/09/2019 Please note at the time of this dictation, the patient was seen and physically examined by myself. REASON FOR CONSULTATION: Portal vein thrombus. HISTORY OF PRESENT ILLNESS: This is a 58-year-old female who presented to the Emergency Room for significant abdominal distention and it has gotten worse giving her excessive abdominal pain and needing to have a paracentesis. The patient primarily sees her GI doctor at [facility]; however, she could not make it that far with the vehicle that they were driving. She had a paracentesis yesterday in which 3200 mL was pulled off. She had one done in September of this year as well and 4100 mL was pulled off as well. She is on diuretics, which she has taken spironolactone 50 mg daily and Lasix 40 and she is also on lactulose. The patient states she did have a relapse in her drinking when her [id number] killed himself at the end of November and she was drinking very heavily at that time. The patient states she was due in December for an EGD and a colonoscopy at [place], but had to cancel due to transportation. Her last EGD with us was in 2016. She had grade 2 varices and portal hypertensive gastropathy was noted at that time. ALLERGIES: LATEX AND SHELLFISH. MEDICATIONS: From home, albuterol, Lasix, lactulose and spironolactone. PAST MEDICAL HISTORY: Liver cirrhosis, GERD, portal hypertension, history of esophageal varices, COPD and hernia. PAST SURGICAL HISTORY: Negative. FAMILY HISTORY: Noncontributory. SOCIAL HISTORY: She does smoke cigarettes. She says she is not drinking anymore, but she did have a relapse of heavy drinking the last week of November. REVIEW OF SYSTEMS: Twelve-point review of systems [place] [address] CONSULTATION Name: LISSETTE SALAMANCA Room: [address]#: [id number] Admission: 02/04/19 Attend Phys: Althea Penn MD Discharge: Date of : 64 Report #: [id number] except what is mentioned in the HPI. PHYSICAL EXAMINATION: VITAL SIGNS: Temperature 35.9, pulse 73, respirations 18 and blood pressure 109/62. HEART: Regular rate and rhythm. LUNGS: Clear. ABDOMEN: Soft, positive bowel sounds in all 4 quadrants with some distention noted, but no pain. LABORATORY DATA: Hemoglobin 8.9, white count 1.3 and platelets are 19. PT is 16.6, INR is 1.6. GFR is 57, total bilirubin is 1.3, alkaline phosphatase 106, ALT [address] AST is 27. CT of the abdomen and pelvis shows umbilical hernia, diffuse edema involving the colon, more likely secondary to ascites, diffuse cirrhosis noted. Ultrasound of the abdomen showed a partial portal vein thrombosis was noted. IMPRESSION: 1. Portal vein thrombosis, partial. 2. Alcoholic cirrhosis. 3. Ascites. 4. Pancytopenia. 5. History of esophageal varices. 6. Chronic kidney disease. 7. History of alcohol abuse. PLAN: 1. The patient will need adjustments in her diuretics once her BP improves. 2. Further recommendations regarding her partial portal vein thrombus will be made once Dr. Rosas sees the patient later today. Thank you for allowing us to participate in this patient's care. Please do not hesitate to call with any questions in regard to this consult. <ELECTRONICALLY SIGNED> By: Belle Rosas MD 02/10/19 1734 1158 [id number] Rosas MD /nt
[2019-02-10 20:00] VITALS: BP 119/71
[2019-02-11] VITALS: BP 107/65
[2019-02-11 04:00] VITALS: BP 105/66; BP 127/52
[2019-02-11 07:00] VITALS: BP 94/57
--- NOTE | 2019-02-11 07:04 | NUR ---
ASSUMED PT CARE AT 1930. ASSESSMENT COMPLETED CHARTED. ABLE TO MAKE NEEDS KNOWN. RESTING IN BED AT THIS TIME. C/O PAIN AND DISCOMFORT AND GAVE PRN PAIN MEDICATION PER OCT. UP AD JESIKA, VSS. NO SIGNIFICANT CHANGES THIS SHIFT. HOPING TO GO HOME BEFORE TOMORROW FOR HER BIRTHDAY. WILL CONTINUE TO MONITOR.
[2019-02-11 09:59] LABS: PLATELET COUNT* 21 thou/uL (150-400)
--- NOTE | 2019-02-11 11:48 | NUR ---
INITAL ASSESSMENT COMPLETED CHARTED. VSS. ST ON MONITOR. HOURLY ROUNDING IN PLACE FOR PT SAFETY. CLWR.
[2019-02-11] MEDS ORDERED: XIFAXAN550 M1 PO (12:39)
[2019-02-11] MEDS ORDERED: MIDODRINE HCL10 MG PO (12:41)
[2019-02-11] MEDS ORDERED: CEFDINIR300 MG PO (12:41)
[2019-02-11] MEDS ORDERED: OXYCODONE HCL 55 MG PO (12:43)
[2019-02-11 12:46] VITALS: BP 94/57
[2019-02-11 13:30] VITALS: BP 94/57
--- NOTE | 2019-02-11 13:44 | NUR ---
[employer] CONSULTANT SPOKE TO THE PATIENT TO DISCUSS DISCHARGE PLANNING AND HH. PATIENT [facility] AGREEMENT WITH [facility]. D/C WILDERNESS GUIDE CONTACTED [facility] TO INFORM OF THE HH REFERRAL AND FAXED THE PATIENT'S FACESHEET, H&P, AND D/C ORDERS. CM WILL REMAIN AVAILABLE TO ASSIST AND FOLLOW NEEDED. [facility] PHONE: [phone] FAX: [phone]
--- NOTE | 2019-02-11 16:05 | PATH ---
[address] [address] PATHOLOGY RPT PROCEDURE Name: LISSETTE SALAMANCA Room: [address] IN [facility]#: [id number] Admission: 02/04/19 Date of : 64 Discharge: 02/11/19 Report #: [id number] Path Case #: [id number] Note [facility] Accession Number: [id number] TESTS RESULT FLAG UNITS REF RANGE LAB Clinician Provided Cytology Information No. of containers..01 Other (Miscellaneous) Source: ASCITES DIAGNOSIS: 02 ASCITES NEGATIVE FOR MALIGNANT CELLS. REACTIVE MESOTHELIAL CELLS AND FEW INFLAMMATORY CELLS. THIS INTERPRETATION INCLUDES EVALUATION OF A CELL BLOCK. Signed out by: 02 Kaushik Cummings MD, Pathologist NPI- [id number] Performed by: 01 Sharonda Patel, Cst ([facility]) Gross description: 01 100ML, YELLOW, CLEAR /LCS FLAG LEGEND: L-Low Normal,H-High Normal,LL-Alert Low,HH-Alert High <-Panic Low,>-Panic High,A-Abnormal,AA-Critical Abnormal Performed at: [address] [place] [address] Johann Lawrence MD, [address] [place] [id number] Kaushik Cummings MD, Specimen Comment: A courtesy copy of this report has been sent to Specimen Comment: [phone], . Specimen Comment: Report sent to / DR BUTLER Specimen Comment: A duplicate report has been generated due to demographic updates. Performed at: [address], [place], [place] [id number] MD Johann Lawrence MD Phone: [phone]
--- NOTE | 2019-02-12 14:01 | EKG ---
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: : 1960 Requested By: Althea Penn Order Number: [id number] Wallace FERNANDEZ: Mike Pruett Measurements Intervals [place] Rate: 101 P: 74 MI: 112 QRS: 17 QRSD: 244 T: 12 QT: 397 QTc: 515 Interpretive Statements Sinus tachycardia Nonspecific t wave changes Compared to ECG 02/04/2019 17:17:48 Sinus rhythm no longer present Electronically Signed On 02-12-2019 14:01:44 CDT by Mike Pruett [email or web address] <ELECTRONICALLY SIGNED> By: Mike Pruett MD, [facility] 02/12/19 1401 1125 1125 Mike Pruett MD, [facility] /EPI
== END 2019-02-11 14:35 | disposition home or self-care (01) | DRG 871 ==
LOC: M.ERS 16:54 → M.TBA-ER 19:30 → M.ICU 02-05 16:25 → M.2W 02-08 10:25
PROVIDERS: Internal Medicine; Physician Assistant; ADMIT Internal Medicine
PROC: 0W9G3ZZ Drainage of Peritoneal Cavity, Percutaneous Approach (ICD-10-PCS; principal; 2019-02-05)
DX: A41.9 Sepsis, unspecified organism (principal); I81 Portal vein thrombosis; K65.2 Spontaneous bacterial peritonitis; D61.818 Other pancytopenia; E44.0 Moderate protein-calorie malnutrition; K76.6 Portal hypertension; I85.00 Esophageal varices without bleeding; K70.31 Alcoholic cirrhosis of liver with ascites; R65.20 Severe sepsis without septic shock; K21.9 Gastro-esophageal reflux disease without esophagitis; I12.9 Hypertensive chronic kidney disease with stage 1 through stage 4 chronic kidney disease, or unspecified chronic kidney disease; J44.9 Chronic obstructive pulmonary disease, unspecified; K57.90 Diverticulosis of intestine, part unspecified, without perforation or abscess without bleeding; K42.9 Umbilical hernia without obstruction or gangrene; R16.1 Splenomegaly, not elsewhere classified; N18.9 Chronic kidney disease, unspecified; F17.210 Nicotine dependence, cigarettes, uncomplicated; K72.90 Hepatic failure, unspecified without coma; Z68.25 Body mass index [BMI] 25.0-25.9, adult; Z91.040 Latex allergy status; Z91.013 Allergy to seafood